=== PATIENT | male | born 1965 | race Caucasian/White ===

== ENCOUNTER 2020-04-09 14:51 | Outpatient (CLI) | payer MEDICARE, SELFPAY ==
--- NOTE | ~2020-04-09 | CT_ITS ---
EXAMINATION: CT LE LT wo con DATE: 04/09/2020 15:17 INDICATION: Left knee pain. TECHNIQUE: Computed tomography (CT) of the left knee was performed without intravenous contrast. Auto mated exposure control and iterative reconstruction technique were employed. The dose-length product was 522.90 mGy-cm. COMPARISON: None FINDINGS: Bone alignment is normal. No fracture. There are tiny marginal osteophytes in all 3 knee claudy int compartments. The posterior articular surface of the medial femoral condyle demonstrates a 1.5 x 0.9 cm osteochondral lesion characterized by small cysts outlining an area of subcortical bone. There is no joint space narrowing. There is a moderate-sized knee joint effusion. IMPRESSION: 1. Left knee osteoarthritis including an unstable osteochondral lesion of posterior medial femoral co ndyle. 2. Moderate-sized left knee joint effusion. Reviewed, dictated and finalized at location A. IMPRESSION: 1. Left knee osteoarthritis including an unstable osteochondral lesion of poste rior medial femoral condyle. 2. Moderate-sized left knee joint effusion.
== END 2020-04-09 14:52 | disposition home or self-care (01) ==
PROVIDERS: Visit Provider Family Medicine
DX: M25.462 Effusion, left knee (principal); M17.12 Unilateral primary osteoarthritis, left knee
CPT/HCPCS: 73700